=== PATIENT | female | born 2000 | race American Indian/Alaskan Native ===

== ENCOUNTER 2021-04-23 10:16 | Emergency (ER) | payer SELFPAY ==
[2021-04-23 11:30] VITALS: BP 126/69
--- NOTE | 2021-04-23 13:39 | Emergency Department Report ---
- General Chief Complaint: Pain General Stated Complaint: NEGATIVE FOR COVID FEELING SICK Time Seen by Provider: 04/23/21 13:32 Source: patient Mode of arrival: Ambulatory Limitations: No Limitations - History of Present Illness Initial Comments: Patient is a 20-year-old female presents emergency room with complaints of URI symptoms that began 04/17/21. She states that she was tested for COVID-19 on 04/19/21 and reports her test was negative. She states that her symptoms have been headache, sweats, chills, nausea, diarrhea, dry cough. She denies any vomiting, sore throat, ear pain, shortness of breath, chest pain. No past medical history. No allergies to medications. Last menstrual cycle 3 days ago. - Related Data Allergies Allergy/AdvReac Type Severity Reaction Status Date / Time No Known Allergies Allergy Unverified 04/23/21 11:28 ED Review of Systems ROS: Stated complaint: NEGATIVE FOR COVID FEELING SICK Other details as noted in HPI Comment: All other systems reviewed and negative ED Past Medical Hx - Past Medical History Previous Medical History?: No - Surgical History Past Surgical History?: No ED Physical Exam - General Limitations: No Limitations General appearance: alert, in no apparent distress - Head Head exam: Present: atraumatic, normocephalic - Eye Eye exam: Present: normal appearance - ENT ENT exam: Present: normal orophraynx, mucous membranes moist, TM's normal bilaterally, normal external ear exam - Respiratory Respiratory exam: Present: normal lung sounds bilaterally. Absent: respiratory distress, wheezes, rales, rhonchi, stridor, chest wall tenderness, accessory muscle use, decreased breath sounds, prolonged expiratory - Cardiovascular Cardiovascular Exam: Present: regular rate, normal rhythm, normal heart sounds. Absent: systolic murmur, diastolic murmur, rubs, gallop - Neurological Exam Neurological exam: Present: alert, oriented X3 - Psychiatric Psychiatric exam: Present: normal affect, normal mood - Skin Skin exam: Present: warm, dry, intact ED Course Vital Signs 04/23/21 11:27 Temperature 99.0 F Pulse Rate 68 Respiratory 18 Rate Blood Pressure 126/69 O2 Sat by Pulse 100 Oximetry ED Medical Decision Making - Medical Decision Making Patient is a 20-year-old female presents emergency room with complaints of URI symptoms that began 04/17/21. She states that she was tested for COVID-19 on 04/19/21 and reports her test was negative. She states that her symptoms have been headache, sweats, chills, nausea, diarrhea, dry cough. She denies any vomiting, sore throat, ear pain, shortness of breath, chest pain. No past medical history. No allergies to medications. Last menstrual cycle 3 days ago. Vitals are normal. Patient's oxygen saturation is 100% on room air. Patient is well-appearing, no abnormality on physical examination as documented in chart. Symptoms and examination appear most likely consistent with URI. Discussed supportive care and symptomatic treatment with patient. Advised patient Please increase your fluid intake over the next several days. May take Tylenol as needed for fever or body aches. May take [id number] cold symptom relief medication such as Mucinex or TheraFlu. Get plenty of rest. Follow-up with a primary care doctor for reexamination. Return to emergency room immediately for any new or worsening symptoms including but not limited to difficulty breathing, shortness of breath, severe chest pain, unable to tolerate by mouth intake, etc. Critical care attestation.: If time is entered above; I have spent that time in minutes in the direct care of this critically ill patient, excluding procedure time. ED Disposition Clinical Impression: Upper respiratory infection Qualifiers: URI type: unspecified URI Qualified Code(s): J06.9 - Acute upper respiratory infection, unspecified Disposition: 01 HOME / SELF CARE / HOMELESS Is pt being admited?: No Does the pt Need Aspirin: No Condition: Stable Instructions: Viral Respiratory Infection Additional Instructions: Please increase your fluid intake over the next several days. May take Tylenol as needed for fever or body aches. May take [id number] cold symptom relief medication such as Mucinex or TheraFlu. Get plenty of rest. Follow-up with a primary care doctor for reexamination. Return to emergency room immediately for any new or worsening symptoms including but not limited to difficulty breathing, shortness of breath, severe chest pain, unable to tolerate by mouth intake, etc. Referrals: JOSE DAVID GUY MD [Staff Physician] - 2-3 Days [facility] [Provider Group] - 2-3 Days Forms: Work/School Release Form(ED) Time of Disposition: 13:39 Print Language: WOLOF
== END 2021-04-23 15:53 | disposition home or self-care (01) ==
LOC: ED 10:16
DX: J06.9 Acute upper respiratory infection, unspecified (principal)
CPT/HCPCS: 99281